=== PATIENT | male | born 1970 | race African-American/Black ===

== ENCOUNTER 2018-10-07 01:04 | Emergency (ER) | payer OTHER ==
[2018-10-07 02:18] VITALS: BP 128/87; PULSE 81; TEMP 98.4; BMI 31.9
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
[2018-10-07] MEDS ORDERED: ACETAMINOPHEN 500 MG TABLET (FP) PO ONE (02:59)
[2018-10-07] MEDS ORDERED: ACETAMINOPHEN 325 MG TABLET (FP) ONE (03:35)
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
== END 2018-10-07 06:41 | disposition home or self-care (01) ==
LOC: JER 01:04
DX: S69.81XA Other specified injuries of right wrist, hand and finger(s), initial encounter (principal); Y35.811A Legal intervention involving manhandling, law enforcement official injured, initial encounter; Y93.89 Activity, other specified; Y92.89 Other specified places as the place of occurrence of the external cause; Y99.0 Civilian activity done for income or pay
CPT/HCPCS: 73110-TC-RT-FY; 99281-25

== ENCOUNTER 2018-11-26 11:13 | Emergency (ER) | payer OTHER ==
[2018-11-26 11:20] VITALS: BP 131/76; PULSE 92; TEMP 99.3; BMI 31.0
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
== END 2018-11-26 15:20 | disposition home or self-care (01) ==
LOC: JERFT 11:13
DX: Z77.21 Contact with and (suspected) exposure to potentially hazardous body fluids (principal); Y35.891A Legal intervention involving other specified means, law enforcement official injured, initial encounter; Y93.89 Activity, other specified; Y92.89 Other specified places as the place of occurrence of the external cause; Y99.0 Civilian activity done for income or pay
CPT/HCPCS: 36415; 87389; 99281-25